=== PATIENT | female | born 1980 | race Caucasian/White ===

== ENCOUNTER 2023-12-16 14:14 | Outpatient (OUT) | payer OTHER, SELFPAY ==
[2023-12-16 14:44] LABS: D Dimer 0.19 mg/L FEU (<=0.59)
== END 2023-12-16 14:15 | disposition home or self-care (01) ==
PROVIDERS: PCP Nurse Practitioner; Visit Provider Nurse Practitioner
DX: R06.02 Shortness of breath (principal)
CPT/HCPCS: 36415; 85378